=== PATIENT | male | born 1960 | race African-American/Black ===

== ENCOUNTER 2018-08-11 12:38 | Day surgery (SDC) | payer BC ==
[2018-08-07 15:11] VITALS: BMI 25.4
[2018-08-11] MEDS ORDERED: BUPIVACAINE HCL/PF 0.5% (5MG/ML) 10 ML VIAL ONE (14:33)
[2018-08-11] MEDS ORDERED: PROPOFOL 20 ML ONE ×2 (15:00→15:58)
[2018-08-11] MEDS ORDERED: MIDAZOLAM HCL 2 MG/2 ML SINGLE DOSE VIAL ONE (15:00)
[2018-08-11] MEDS ORDERED: fentaNYL CITRATE 250 MCG/5 ML VIAL ONE (15:00)
[2018-08-11] MEDS ORDERED: ROCURONIUM BROMIDE 50 MG/5 ML VIAL ONE (15:00)
[2018-08-11] MEDS ORDERED: ceFAZolin SODIUM 1 GM VIAL IVPB ONE (15:40)
[2018-08-11] MEDS ORDERED: BUPIVACAINE HCL/PF (5 MG/ML) 30 ML VIAL IJ ONE (15:45)
[2018-08-11] MEDS ORDERED: NEOSTIGMINE METHYLSULFATE 0.5 MG/ML - 10 ML MDV ONE ×2 (15:49→16:29)
[2018-08-11] MEDS ORDERED: ACETAMINOPHEN 325 MG TABLET (FP) PO PRN (16:35)
[2018-08-11] MEDS ORDERED: ACETAMINOPHEN WITH CODEINE 300MG/30MG TABLET PO PRN (16:35)
--- NOTE | 2018-08-11 16:35 | OP ---
Operative Note - Note: Operative Date: 08/11/18 Pre-Operative Diagnosis: Renal failure Operation: Laparoscopy. Placement Peritoneal Dialysis catheter Findings: No intraabdominal adhesions Implants: Double cuff Tenckhoff catheter Post-Operative Diagnosis: Same as Pre-op Surgeon: Juan Pablo Frias Machine Operations Supervisor: Wendi Hutson Anesthesiologist/MULTI CARE TECHNICIAN: Kian Escobar Anesthesia: General
--- NOTE | 2018-08-11 16:59 | SURG ---
Surgery Sexual Abuse Counsellor Note Sexual Abuse Counsellor: Wendi Hutson PA-C Date of Service: 08/11/18 Diagnosis: Renal failure er Procedure: Laparoscopy. Placement Peritoneal Dialysis catheter I was present for the entirety of the operative procedure. For further detail, please refer to operative report. Visit type - Case Type Case Type: Scheduled - Emergency Emergency Visit: No - New patient This patient is new to me today: Yes Date on this admission: 08/11/18
--- NOTE | 2018-08-11 17:18 | HP ---
Satellite H - Chief Complaint History of Present Illness: 58 year old man with ESRD with failed transplent who has resumed hemodialysis. He wants to transition to peritoneal dialysis. History Source: Patient Limitations to Obtaining History: No Limitations - Past Medical History Allergies/Adverse Reactions: Allergies Allergy/AdvReac Type Severity Reaction Status Date / Time No Known Allergies Allergy Verified 08/11/18 13:07 Renal/: Yes: Renal Failure, Hemodialysis Additional Medical History: Polycystic kidney disease - Current Medications Current Medications: Home Medications Medication Instructions Recorded Aspirin [ASA -] 81 mg PO DAILY 08/07/18 Cinacalcet HCl [Sensipar] 60 mg PO DAILY 08/07/18 Folic Acid 1 mg PO DAILY 08/07/18 Multivitamin [Multiple Vitamins] 1 each PO DAILY 08/07/18 Prednisone 5 mg PO DAILY 08/07/18 Acetaminophen W/ Codeine #3 1 tab PO Q4H PRN #20 tablet MDD 6 08/11/18 [Tylenol # 3 -] Satellite Physical Exam - Physical Examination Vital Signs: Vital Signs Period Temp Pulse Resp BP Sys/Silverio Pulse Ox Last 24 Hr 97.5 F 61 18 127/72 100 General Appearance: Well Nourished ENT: Clear Lung: Clear to auscultation Heart: Regular rate & rhythm Abdomen: Soft, No tenderness, Other (Right lower quadrant subQ mass, movable - under scar from kidney transplant) Satellite Impression/Plan - Impression/Plan Impression: Renal failure. Failed kidney transplant. Operative Procedure: Laparoscopy, placementr peritoneal dialysis catheter Date to be Performed: 08/11/18
[2018-08-11] MEDS ORDERED: ONDANSETRON 4 MG/2 ML VIAL IVPUSH PRN (17:45)
[2018-08-11 19:12] VITALS: BP 109/71; PULSE 49; TEMP 98.1
--- NOTE | 2018-08-14 11:22 | OP ---
DATE OF OPERATION: 08/11/2018 SURGEON: Juan Pablo Storey MD SENIOR TEST ANALYST: DAVID Hutson PROCEDURE: Laparoscopy with placement of peritoneal dialysis catheter. PREOPERATIVE DIAGNOSIS: Renal failure. POSTOPERATIVE DIAGNOSIS: Renal failure. ANESTHESIA: General. ANESTHESIOLOGIST: OPERATIVE FINDINGS: There were no intra-abdominal adhesions. OPERATIVE PROCEDURE: Following routine patient identification with site and side verification, general anesthesia was induced. The abdomen was prepped with ChloraPrep. A time-out was performed. A Veress needle was inserted atraumatically through the umbilicus and pneumoperitoneum was established with carbon dioxide to 15 mmHg pressure. Marcaine was infiltrated in the right upper quadrant and a 5-mm optical port placed under direct laparoscopic visualization into the peritoneal cavity. A 5-mm angled laparoscope was used to explore the abdomen. Marcaine was infiltrated above and to the left of the umbilicus, and an 8-mm incision was made. An 8-mm bladeless trocar was advanced to the edge of the peritoneum and then directed inferiorly towards the pelvis where it entered the peritoneal cavity. A curled swan neck double cuff Tenckhoff catheter was started with a stylet and advanced through the 8-mm trocar into the pelvis. It was supplied in the pelvis and the inner cuff was left at the level of the fascia after removing the trocar. The other end of the catheter was attached to a curved tunneler, which was passed in the subcutaneous plane to exit on the right abdominal wall at the previously chosen site. A luer lock adapter was attached and then a liter of saline was run into the peritoneal cavity under gravity drainage. This took approximately 3.5 minutes. The bag was dropped to the floor but did not drain well. Pneumoperitoneum was re-established and the catheter was seen deep in the pelvis. It was elevated, and a suture of 2-0 Prolene placed with a suture passer to keep the catheter along the anterior abdominal wall in the suprapubic area. Pneumoperitoneum was evacuated. Another liter of saline was run in and now drainage was brisk and all the fluids allowed to drain out except for approximately 400 mL, which was left in the peritoneal cavity. The tubing was filled with heparin saline solution and was capped. All ports were removed. The wounds were closed with interrupted sutures of 3-0 Vicryl in subcutaneous tissues and 4-0 Biosyn on the skin. Sterile dressing was applied with Dermabond glue. The catheter was attached to the skin with a Tegaderm, and the patient was extubated and taken to the recovery room in stable condition. JUAN PABLO STOREY M.D. NIDIA/[id number]
== END 2018-08-11 19:25 | disposition home or self-care (01) ==
LOC: JASU-SURG 12:38
PROVIDERS: ATTEND Surgery
PROC: 0WHG43Z Insertion of Infusion Device into Peritoneal Cavity, Percutaneous Endoscopic Approach (ICD-10-PCS; principal; 2018-08-11 14:00)
DX: N18.6 End stage renal disease (principal); T86.12 Kidney transplant failure; Z99.2 Dependence on renal dialysis
CPT/HCPCS: 36415; 84132; 94760; J1644